=== PATIENT | female | born 1950 | race Caucasian/White ===

== ENCOUNTER 2019-06-17 20:32 | Observation (INO) | payer MEDICARE, OTHER ==
[~2019-06-17] VITALS: Ht 167.6 cm; Wt 67.7 kg
[~2019-06-17 20:32] MED LIST: ALEVE220 MG PO; DULOXETINE HCL60 MG PO; NOVOLIN N100 UNIT/1 SUB-Q; SIMVASTATIN20 MG PO
--- OUTSIDE RECORDS SUMMARY | 2019-06-17 20:34 | XMS ---
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 Care History Medical/Surgical 06/01/2019 [facility] [place] [facility] RECENT D/C TO [facility] 06/01/19 S/P FALL AND ANKLE FX REPAIR.\T\ nbsp; PT IS NON-WEIGHT BEARING AT DISCHARGE. E.D. VISIT COUNT (12 MO.) 2 [facility] TOTAL 2 NOTE: Visits indicate total known visits. ED/UCC VISIT TRACKING (12 MO.) 06/17/2019 20:33 [facility] [place] TYPE: Emergency COMPLAINT: - ANKLE PAIN 05/28/2019 08:55 [facility] [place] TYPE: Emergency COMPLAINT: - POSSIBLE ANKLE FX, FALL INPATIENT VISIT TRACKING (12 MO.) 05/28/2019 10:24 [facility] [place] TYPE: Medical Surgical COMPLAINT: - RIGHT ANKLE DISLOCATION DIAGNOSES: - Unspecified place in unspecified non-institutional (private) residence as the place of occurrence of the external cause - Adverse effect of other opioids, initial encounter - Other acute postprocedural pain - long-term (current) use of non-steroidal anti-inflammatories (NSAID) - Unspecified place in unspecified non-institutional (private) residence as the place of occurrence of the external cause - Anxiety disorder, unspecified - Type 2 diabetes mellitus with diabetic neuropathy, unspecified - Drug induced constipation - Other care home (current) drug therapy - long-term (current) use of non-steroidal anti-inflammatories (NSAID) - Type 2 diabetes mellitus with diabetic neuropathy, unspecified - Unspecified place in hospital as the place of occurrence of the external cause - Displaced bimalleolar fracture of right lower leg, initial encounter for closed fracture - Fall on same level, unspecified, initial encounter - Major depressive disorder, single episode, unspecified - long-term (current) use of insulin - Major depressive disorder, single episode, unspecified - 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
[2019-06-17] MEDS ORDERED: ULTRAM50 MG PO (20:41)
--- NOTE | 2019-06-18 01:43 | NUR ---
BROUGHT PATIENT FROM ED TO SAME DAY SURGERY CENTER ROOM 122.
--- NOTE | 2019-06-18 01:47 | NUR ---
PT ARRIVES TO [facility] VIA STRETCHER. 3PA TO SLIDE PT TO HOSPITAL BED, NON-WEIGHT BEARING. PT RATES PAIN 1-2/10 IN LEFT ANKLE. ASSESSMENT COMPLETE. STRONG PEDAL PULSES BILATERALLY, CAP REFILL <2 BLE, NUMBNESS AND TINGLING BLE. CPOX IN PLACE ORDERED, WNL ON RA. VSS. IV FLUSHED WNL, IVF INFUSING ORDERED. PT STATES SHE FEELS "A LITTLE SHAKY". CBG 189. CALL LIGHT PROVIDED TO PT. LEGS ELEVATED. BED ALARM ON FOR PT SAFETY.
--- NOTE | 2019-06-18 04:00 | NUR ---
CHECKED ON PT RESTING IN BED WITH EYES CLOSED. IVF INFUSING WNL ORDERED. BREATHING EQUAL AND UNLABORED. BED ALARM ON.
--- NOTE | 2019-06-18 06:37 | NUR ---
PT PLACED ON BED DEAL AT THIS TIME. RATES PAIN 4/10, DENIES NEED FOR PRN MEDICAITON AT THIS TIME. VSS. PEDAL PULSES PALPATED BILATERALLY LOWER EXTREMITIES. NUMBNESS AND TINGLING BLE CHRONIC. CAP REFILL <2. CALL LIGHT IN REACH.
--- NOTE | 2019-06-18 06:47 | NUR ---
STRONG PEDAL PULSES BILATERALLY. FRACTURE BOOTS IN PLACE BILATERALLY LOWER EXTREMITIES. CHRONIC NUMBNESS AND TINGLING. BED BOUND. NPO. USING CALL LIGHT APPROPRIATELY. IVF INFUSING WNL ORDERED.
--- NOTE | 2019-06-18 07:51 | NUR ---
DR ZARAGOZA CALLED AND SAID THAT DR MCKNIGHT CALLED HIM TO LOOK AT THE [facility]RA[facility] FOR PT. DR ZARAGOZA WAS HERE WITHIN FIVE MINUTES AND WROTE ORDERS. I CALLED DR MCKNIGHT TO VERIFY WHETHER DR ZARAGOZA WAS ASSUMING CARE FOR PATIENT OR JUST CONSULTING. DR MCKNIGHT SAID DR ZARAGOZA WAS TO ASSUME CARE. SO I PUT IN THE WRITTEN ORDERS THAT DR ZARAGOZA WROTE. DR ZARAGOZA CALLED AND SAID THAT THEY DO NOT HAVE THE EQUIPMENT NEEDED FOR PTS SURGERY AVAILABLE UNTIL NEXT MONDAY. HE SAID SHE COULD GO BACK TO [facility] IF NEED BE OR SHE COULD BE TRANSFERRED OUT IF THAT DOESNT WORK. I CALLED [facility] TO INFORM HER OF ALL OF THIS.
--- NOTE | 2019-06-18 09:10 | NUR ---
CALLED AND TALKED WITH DR ZARAGOZA HE STATES THAT HE CANNOT DO SURGERY ON THIS PT ANKLE UNTIL NEXT MONDAY AND THIS WILL BE NEXT Monday06/25/19 A [facility] PT. NOTIFIED OR. ALSO NOTIFIED [facility] THAT PT WILL BE RETURNING TO THEIR FACILITY TODAY. ORDER FAXED TO OR, RECEIVED FAX CONFIRMATION.
--- NOTE | 2019-06-18 09:30 | NUR ---
PATIENT SITTING UP IN BED EATING BREAKFAST. CALL LIGHT IN REACH. NO FURTHER NEEDS AT THIS TIME.
--- NOTE | 2019-06-18 09:44 | NUR ---
PT SITTING UP IN BED EATING BREAKFAST INDEPENDENTLY. ALERT AND ORIENTED TO ALL. RATING LEFT ANKLE PAIN 4/10. MEDICATED WITH 0.4MG IV DILAUDID. PT DENIES NAUSEA OR OTHER CONCERNS. RIGHT ANKLE WITH FRACTURE BOOT IN PLACE, LEFT ANKLE WITH ORTHOGLASS CAST, APPLIED THIS AM BY DR. ZARAGOZA. PT DEMONSTRATES GOOD MOVEMENT OF BILAT TOES, CHRONIC NEUROPAHTY, CAP REFILL LESS THAN 3 BILATERALLY. CALL LIGHT WITHIN REACH.
--- NOTE | 2019-06-18 09:46 | NUR ---
BILATERAL LE ELEVATED ON PILLOWS.
--- NOTE | 2019-06-18 11:15 | NUR ---
PT NON WEIGHT BEARING BILATERAL EXTREMITIES. OVERHEAD NOY USED TO TRANSFER PT TO COMMODE THEN WHEELCHAIR. PT GIVEN DC INSTRUCTIONS THEN DISCHARGED TO [facility] VIA FACILITY TRANSPORTER. PERSONAL BELONGINGS WITH PT. REPORT CALLED TO [facility], GIVEN TO MAXI.
--- NOTE | 2019-06-18 14:14 | NUR ---
PT LOADED UP IN [facility], ALIN JORDAN TO TAKE PT OUT. SHE IS SMILING AND GAVE A BLESSING AND ENCOURAGEMENT SHE LEFT. WILL FOLLOW NEEDED
--- NOTE | 2019-06-20 07:14 | CONS ---
[facility] [address] [place], [place] [address] Signed DATE OF CONSULTATION: HISTORY OF PRESENT ILLNESS: Ms. Laureano is a 69-year-old white female, who broke her right ankle several weeks ago. She apparently had another issue at her long-term care facility and was brought to the ER last night with what appears to be a fracture dislocation of the left ankle, which by history is at least several days old. She was provisionally reduced and placed in a boot and admitted to Dr. Dasilva who has requested orthopedic consultation. In talking to Ms. Laureano, amazingly, she has no pain whatsoever. PHYSICAL EXAMINATION: Examination of her left ankle reveals a lateral fracture dislocation with some abrasion and early breakdown of the skin over the medial malleolus. She has no sensation when I palpate her about the foot or ankle. Indeed, I could reduce her fairly easily without any pain reaction from her whatsoever. DIAGNOSTIC DATA: X-rays show severe osteopenia. It is difficult to identify much residual lateral malleolus and it looks like she may also have a lateral tibial plafond impaction injury. ASSESSMENT AND PLAN: I have told her I am not sure this would be repairable with typical open reduction and internal fixation. I have explained that she might need to have a tibiotalar calcaneal arthrodesis over an IM nail. After explaining the potential risks, complications, and alternatives, she was comfortable with that approach. Unfortunately, there are not many sets of this system available in the [facility] and we will not be able to do her surgery until next week. We will plan on provisionally reducing or getting her in a better padded splint and arrange for her to return to her long-term and we can gather readmitted as an observation patient next Monday. Mayuri Dean MD WFB/MODL /[id number] Copies: Electronically Signed By: MAYURI DEAN MD 06/20/19 0714 PATIENT NAME: ANGEL LAUREANO CONSULTATION DATE OF : 54 REPORT #: [id number] PHYSICIAN: MAYURI DEAN MD PCP: PRO MARY MD REPORT IS CONFIDENTIAL AND NOT TO BE RELEASED WITHOUT AUTHORIZATION [address] [address] Signed ~ Electronically Signed By: MAYURI DEAN MD 06/20/1914 PATIENT NAME: ANGEL LAUREANO CONSULTATION DATE OF : 54 REPORT #: [id number] PHYSICIAN: MAYURI DEAN MD PCP: PRO MARY MD REPORT IS CONFIDENTIAL AND NOT TO BE RELEASED WITHOUT AUTHORIZATION
== END 2019-06-18 11:20 ==
LOC: ED 20:32 → MS 20:34
PROVIDERS: ADMIT Specialist
DX: S82.842A Displaced bimalleolar fracture of left lower leg, initial encounter for closed fracture (principal); F32.9 Major depressive disorder, single episode, unspecified; F41.9 Anxiety disorder, unspecified; E11.42 Type 2 diabetes mellitus with diabetic polyneuropathy; X58.XXXA Exposure to other specified factors, initial encounter; Z79.4 Long term (current) use of insulin; Z79.891 Long term (current) use of opiate analgesic; Z79.899 Other long term (current) drug therapy
CPT/HCPCS: 27818; 28435; 36415; 71045; 73590; 73600; 73610; 80053; 82247; 82465; 83615; 84100; 84478; 84550; 85025; 93005; 93010; 96376; 99284-25; G0378; J1170; J2405; J7042

== ENCOUNTER 2019-12-05 00:42 | Emergency (ER) | payer MEDICARE, OTHER ==
[~2019-12-05] VITALS: Ht 167.6 cm; Wt 67.7 kg
[~2019-12-05 00:42] MED LIST changes: +CALCIUM 500 +1 EAC5 PO; +GLUCAGON EMERGEN1 MG INJ; +HUMALOG100 UNIT/1 SUB-Q; +LISINOPRIL-HCT1 EAC1 PO; +MIRALAX17 GM PO; +PROTONIX40 MG PO; +ULTRAM50 MG PO
--- OUTSIDE RECORDS SUMMARY | 2019-12-05 00:46 | XMS ---
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 Care History Medical/Surgical 06/01/2019 [facility] RECENT D/C TO [facility] 06/01/19 S/P FALL AND ANKLE FX REPAIR.\T\ nbsp; PT IS NON-WEIGHT BEARING AT DISCHARGE. E.D. VISIT COUNT (12 MO.) 3 [facility]. TOTAL 3 NOTE: Visits indicate total known visits. 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 - Anxiety disorder, unspecified - Major depressive disorder, single episode, unspecified - Displaced bimalleolar fracture of left lower leg, init - 1 Type 2 diabetes mellitus with diabetic polyneuropathy - Exposure to other specified factors, initial encounter - 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 supervisor (current) drug therapy - skilled nursing (current) use of opiate analgesic 05/28/2019 10:24 [facility] TYPE: Medical Surgical COMPLAINT: - RIGHT ANKLE DISLOCATION DIAGNOSES: - Unsp place in [facility]stit[facility] (private) residence as place - Adverse effect of other opioids, initial encounter - Other acute postprocedural pain - skilled nursing (current) use of non-steroidal non-inflam (NSAID) - Unsp place in [facility]stit[facility] (private) residence as place - Anxiety disorder, unspecified - 1 Type 2 diabetes mellitus with diabetic neuropathy, unsp - Drug induced constipation - 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 supervisor (current) drug therapy - skilled nursing (current) use of non-steroidal non-inflam (NSAID) - 1 Type 2 diabetes mellitus with diabetic neuropathy, unsp - Unsp place in hospital as place - Displaced bimalleolar fracture of right lower leg, init - Fall on same level, unspecified, initial encounter - Major depressive disorder, single episode, unspecified - skilled nursing (current) use of insulin - Major depressive disorder, single episode, unspecified - 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
[2019-12-05] MEDS ORDERED: LISINOPRIL20 MG PO (00:52)
[2019-12-05] MEDS ORDERED: JANUVIA50 MG PO (00:53)
[2019-12-05] MEDS ORDERED: GABAPENTIN300 MG PO (00:54)
[2019-12-05] MEDS ORDERED: TRULICITY1.5 MG/0.5 SUB-Q (00:54)
== END 2019-12-05 03:00 | disposition home or self-care (01) ==
LOC: ED 00:42
DX: K52.9 Noninfective gastroenteritis and colitis, unspecified (principal); E11.9 Type 2 diabetes mellitus without complications; F32.9 Major depressive disorder, single episode, unspecified; F41.9 Anxiety disorder, unspecified
CPT/HCPCS: 51701; 80053; 81001; 83690; 83735; 85025; 99284-25; J7030

== ENCOUNTER 2020-07-21 12:31 | Day surgery (SDC) | payer MEDICARE, OTHER ==
[~2020-07-21] VITALS: Ht 167.6 cm; Wt 67.6 kg
[~2020-07-21 12:31] MED LIST changes: +CIPRODEX OTIC7.5 ML AD; +GABAPENTIN300 MG PO; +JANUVIA50 MG PO; +LISINOPRIL20 MG PO; +NOVOLOG FL100 UNIT/1 SUB-Q; +TRULICITY1.5 MG/0.5 SUB-Q
[2020-07-21] MEDS ORDERED: LANTUS100 UNITS/ SUB-Q (13:27)
[2020-07-21] MEDS ORDERED: JARDIANCE25 MG PO (13:31)
--- NOTE | 2020-07-21 15:48 | NUR ---
07/21/20 1548 Tarah Day 1543-PATIENT ARRIVED TO PACU ON 2L NC AWAKE RR EVEN. PATIENT DENIES PAIN OR NAUSEA. ABDOMEN SOFT. IVF INFUSING. PATIENT REPOSITIONS SELF TO BACK.
--- NOTE | 2020-07-22 13:15 | OR ---
[facility] [address] [place], [place] [address] Signed DATE OF OPERATION: 07/21/2020 SURGEON: Yoni Ray MD PREOPERATIVE DIAGNOSES: 1. Constipation, known diverticulosis. 2. Family history of polyps (sister and father). POSTOPERATIVE DIAGNOSIS: Sigmoid and left-sided diverticulosis, otherwise normal. PROCEDURE: Total colonoscopy to cecum. ANESTHESIA: Intravenous sedation, fentanyl 100 mcg and Versed 5 mg. INDICATIONS: This 70-year-old white woman, is a patient of Dr. Herrera and has been referred for colonoscopy. Her last colonoscopy was approximately 12 years ago in August of 2008, at which time she was noted to have diverticulosis as well as mild proctitis. She has no family history of colon cancer, but does have family history of polyps in sister and father. She does have constipation, which is generally response to fiber supplementation. She has other medical problems including diabetes, hypertension, and so forth. She is admitted at this time to undergo colonoscopy. She understands the risks of bleeding, infection, and perforation. FINDINGS: The prep was adequate for the purpose at hand. Irrigation was required throughout. There was no sign of solid stool. Complete colonoscopy was undertaken of the cecum. The only finding of note was diverticular disease of sigmoid and left colon. There were no polyps or signs of cancer. DESCRIPTION OF PROCEDURE: The patient was brought to the endoscopy suite and placed in lateral decubitus position given intravenous sedation to the point of slurred speech and nystagmus. Digital rectal examination was normal. An Olympus video colonoscope was passed in the rectum and manipulated throughout the colon noting diverticular change of the sigmoid and left colon. Scope was ultimately Electronically Signed By: YONI RAY MD 07/22/20 1315 PATIENT NAME: ANGEL LAUREANO OPERATIVE REPORT DATE OF : 54 REPORT #: [id number] PHYSICIAN: YONI RAY MD PCP: MARÍA HERRERA MD REPORT IS CONFIDENTIAL AND NOT TO BE RELEASED WITHOUT AUTHORIZATION [facility] [address] [place], [place] [address] Signed advanced to the cecum. Irrigation was undertaken as necessary as they are. Upon withdrawal the scope and close and careful inspection showed no sign of polyps or colitis, only diverticular changes as previously noted. The rectum was normal as well other than internal hemorrhoidal changes. The scope was removed, and the patient was taken to the recovery room in good condition. CONCLUDING DIAGNOSIS: Diverticulosis, no evidence of polyps. PLAN: Recommend repeat colonoscopy in 10 years or sooner if clinically indicated. Recommend high-fiber diet or fiber supplement. She will return to the ongoing care of Dr. Herrera. MD REGINA Giles/MODL /[id number] cc: María Herrera MD Copies: ~ Electronically Signed By: YONI RAY MD 07/22/20 1315 PATIENT NAME: ANGEL LAUREANO OPERATIVE REPORT DATE OF : 54 REPORT #: [id number] PHYSICIAN: YONI RAY MD PCP: MARÍA HERRERA MD REPORT IS CONFIDENTIAL AND NOT TO BE RELEASED WITHOUT AUTHORIZATION
== END 2020-07-21 16:20 | disposition home or self-care (01) ==
LOC: OPS 12:31 → DS 13:00 → OPS 14:00
PROVIDERS: ATTEND Surgery
PROC: 0DJD8ZZ Inspection of Lower Intestinal Tract, Via Natural or Artificial Opening Endoscopic (ICD-10-PCS; principal; 2020-07-21 14:00)
DX: K64.8 Other hemorrhoids (principal); K57.30 Diverticulosis of large intestine without perforation or abscess without bleeding; I11.0 Hypertensive heart disease with heart failure; I50.9 Heart failure, unspecified; E11.9 Type 2 diabetes mellitus without complications; F32.9 Major depressive disorder, single episode, unspecified; K21.9 Gastro-esophageal reflux disease without esophagitis; Z83.71 Family history of colonic polyps; Z91.048 Other nonmedicinal substance allergy status; Z79.899 Other long term (current) drug therapy; Z79.4 Long term (current) use of insulin
CPT/HCPCS: 99153; G0500; J2250; J3010; J7121

== ENCOUNTER 2021-02-07 18:12 | Emergency (ER) | payer MEDICARE, OTHER ==
[~2021-02-07] VITALS: Ht 167.6 cm; Wt 86.3 kg
[~2021-02-07 18:12] MED LIST changes: +JARDIANCE25 MG PO; +LANTUS100 UNITS/ SUB-Q
== END 2021-02-07 22:07 | disposition home or self-care (01) ==
LOC: ED 18:12
DX: K52.9 Noninfective gastroenteritis and colitis, unspecified (principal); E11.9 Type 2 diabetes mellitus without complications; Z79.899 Other long term (current) drug therapy; Z79.4 Long term (current) use of insulin
CPT/HCPCS: 80053; 81001; 83735; 85025; 96374; 99284-25; J2405; J7030

== ENCOUNTER 2021-10-25 14:48 | Emergency (ER) | payer MEDICARE, OTHER ==
[~2021-10-25] VITALS: Ht 167.6 cm; Wt 86.3 kg
--- NOTE | 2021-10-27 16:35 | EKG ---
[facility] [address] [place] [address] Signed Sinus tachycardia Left axis deviation Minimal voltage criteria for LVH, may be normal variant ( Satish product ) Abnormal ECG When compared with ECG of 28-MAY-2019 10:13, No significant change was found Confirmed by MICHELLE ALMONTE MD ([id number]) on 10/27/2021 4:34:53 PM Electronically Signed By: MICHELLE ALMONTE MD 10/27/21 1635 PATIENT NAME: ANGEL LAUREANO Electrocardiogram DATE OF : 54 PHYSICIAN: MICHELLE ALMONTE MD REPORT #: [id number] REPORT IS CONFIDENTIAL AND NOT TO BE RELEASED WITHOUT AUTHORIZATION
== END 2021-10-25 18:13 | disposition short-term general hospital (02) ==
LOC: ED 14:48
DX: I61.1 Nontraumatic intracerebral hemorrhage in hemisphere, cortical (principal); N28.9 Disorder of kidney and ureter, unspecified; E11.40 Type 2 diabetes mellitus with diabetic neuropathy, unspecified; Z79.4 Long term (current) use of insulin; Z79.899 Other long term (current) drug therapy
CPT/HCPCS: 70450; 70496; 70498; 71045; 80053; 85025; 85610; 85730; 93005; 93010; 96365; 96375; 99285-25; C9803; J1953; J7060; Q9967; U0003

== ENCOUNTER 2022-01-20 19:15 | Observation (INO) | payer MEDICARE, OTHER ==
[~2022-01-20] VITALS: Ht 167.6 cm; Wt 92.5 kg
--- OUTSIDE RECORDS SUMMARY | 2022-01-20 19:18 | XMS ---
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 No recent Security Events currently on file CRITERIA MET - PDMP CARE PROVIDERS SALAZAR TRINH Physical Medicine \T\ Rehabilitation Current PHONE: [phone] DANIELE HEART [facility] Current PHONE: Unknown Manda Mahoney Chromosomal Disorders Counselor/Chemical Radiation Technician 11/23/2021-Current PHONE: [phone] ABIGAIL GONZALEZ Physician Supervisor [employer] Current PHONE: Unknown PRO MARY [facility] 06/18/2019-Current PHONE: [phone] PRANAV ORDAZ Internal Medicine: Pulmonary Disease 12/05/2019-Current PHONE: Unknown [facility] Current PHONE: Unknown Shi has no Care Guidelines for this patient. Care History Medical/Surgical 12/05/2019 [facility] - - Patient is currently established with [facility]. If patient is seen in the ED during business hours. Please contact CHWs at [facility]. - Care Recommendation: If this patient has had 5 or more Emergency Department visits in the last 12 months.\T\nbsp; Patient will require education on the scope and purpose of the ED as an acute care provider not a Primary Care Provider and should not be utilized for chronic conditions.\T\nbsp; These are guidelines and the provider should exercise clinical judgment when providing care. 06/01/2019 [facility] RECENT D/C TO [facility] 06/01/19 S/P FALL AND ANKLE FX REPAIR.\T\ nbsp; PT IS NON-WEIGHT BEARING AT DISCHARGE. E.D. VISIT COUNT (12 MO.) [address] [facility] TOTAL 3 NOTE: Visits indicate total known visits. ED/UCC VISIT TRACKING (12 MO.) 01/20/2022 19:15 [facility] TYPE: Emergency COMPLAINT: - STROKE SYMPTOMS 10/25/2021 14:49 [facility] TYPE: Emergency COMPLAINT: - WEAKNESS DIAGNOSES: - Weakness - Type 2 diabetes mellitus with diabetic neuropathy, unspecified - Disorder of kidney and ureter, unspecified - Type 2 diabetes mellitus without complications - Other senior living (current) drug therapy - Nontraumatic intracerebral hemorrhage, unspecified - MCC (current) use of insulin - Nontraumatic intracerebral hemorrhage in hemisphere, cortical 02/07/2021 18:12 [facility] TYPE: Emergency COMPLAINT: - VOMITING,DIARRHEA DIAGNOSES: - Nausea with vomiting, unspecified - Other senior living (current) drug therapy - Noninfective gastroenteritis and colitis, unspecified - Type 2 diabetes mellitus without complications - [facility] (current) use of insulin INPATIENT VISIT TRACKING (12 MO.) 10/25/2021 20:48 [facility] 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
[2022-01-20] MEDS ORDERED: KEPPRA750 MG PO (19:36)
--- NOTE | 2022-01-20 22:15 | NUR ---
pt arrived from ed via stretcher, oriented to room and hosp routines. On room air, alert to self, place and situation. cooperative, pleasant, alert, c/o neuropathy nic [place], pt obese, states she does not move from the bed. recently came home from [facility], is supposed to get HH/PT but they have not been to her house yet. denies CP or SOB, tele#[address]
--- NOTE | 2022-01-20 23:43 | NUR ---
[facility] CALLED THIS FLOOR QUESTIONING KEPPRA IR DOSAGE. DR CONNER NOTIFIED AND NEW ORDERS TO GIVE 500MG KEPPRA IR TONIGHT, AND FAMILY CAN BRING HER KEPPRA FROM HOME IN AM.
--- NOTE | 2022-01-21 00:29 | NUR ---
Awakes easily, on room air, HOB elevated, meds given. Pt was awake, unable to swallow meds or being able to drink from straw, word salad at begining. meds given with puding, delayed reactio to swallowing noted. Had trouble coordinating swallowing motion from straw and regular water. thickened added to water and it was much more easier for pt to suck out of straw. very slow motion while taking meds, required several cues. then was more better at swallowing w/o problems. unknown if it was because pt got woken up. but pt had eyes fully opened and looking at staff when meds given. and helped hold water jug. speech better now. ontinue sto observe, PT/OT/ST eval was ordered by . Pt did passes swallow test at bedside. Pt has Left sided weakness from previous hemorrhagic stroke., stated she has not walked in weeks. has a caregiver at home
--- NOTE | 2022-01-21 04:18 | NUR ---
TURNED AND REPOSITIOANED IN BED, CLEAR SPEECH AT THIS TIME. L SIDED DEFICIT STILL PRESENT, DENIES SOB OR CP. ON ROOM AIR, CALL LIGHT AT HANDS REACH
--- NOTE | 2022-01-21 06:23 | NUR ---
pt has slept all this shift, aware of self and generalized events. on room air, L sided deficits, stiffness of extremities generalized. moves R hand more than Left. Was incontinent of urine, skin care, clean attends in place. Pt did on admit was able to grab water cup with R hand well, and was able to suck from straw w/o problems, later on when giving meds, pt had word salad, unable to suck fluids from straw, bedside evaluation done, passses but still was unable to suck from straw at times, thickened fluids were givien and pt was able to drink from straw w/o problems. no cough afterwards, meds were given with gerald and she was able to swallow some meds w/o problems and some with a delayed swallowing reaction. are of self only at that time. no change on pt able to hold water cup at that time. helped with repositioning. Pleasant. slow response to instructions. Tele#[address], SR. denies CP or SOB. L side deficit from previous stroke, and LE stiffness
--- NOTE | 2022-01-21 06:44 | EKG ---
[facility] [address] [place] [address] Signed Sinus rhythm with 1st degree AV block Left axis deviation Incomplete left bundle branch block Moderate voltage criteria for LVH, may be normal variant ( R in aVL , Satish product ) Abnormal ECG When compared with ECG of 25-OCT-2021 15:49, No significant change was found Confirmed by ANGEL COVARRUBIAS MD ([id number]) on 01/21/2022 6:43:58 AM Electronically Signed By: ANGEL COVARRUBIAS MD 01/21/22 0644 PATIENT NAME: ANGEL LAUREANO Electrocardiogram DATE OF : 54 PHYSICIAN: ANGEL COVARRUBIAS MD REPORT #: [id number] REPORT IS CONFIDENTIAL AND NOT TO BE RELEASED WITHOUT AUTHORIZATION
--- NOTE | 2022-01-21 07:04 | NUR ---
REPORT RECEIVED FROM [facility]. PT RESTING IN BED WITH EYES CLOSED. RESPIRATIONS EVEN AND UNLABORED. TELEMETRY [place]ONT[place]ING SHOWS NORMAL SINUS RYTHEM WITH HEART RATE IN THE 80'S. BED RAILS UP. CALL LIGHT WITHIN REACH. PT ALLOWED TO REST.
--- NOTE | 2022-01-21 07:32 | NUR ---
DR COVARRUBIAS CALLED AND UPDATED REGARDING HER NOTE INDICATING THAT PT SHOULD RECEIVE ASPIRIN, ORDERS GIVEN TO START PT ON LOW DOSE ASPIRIN DAILY. ORDERS ENTERED. DR CONNER UPDATED ON PTS SWALLOWING ISSUES, NO NEW ORDERS AT THIS TIME.
[2022-01-21] MEDS ORDERED: BASAGLAR K100 UNIT/1 SUB-Q (08:30)
[2022-01-21] MEDS ORDERED: TRULICITY3 MG/0.5 M SUB-Q (08:33)
[2022-01-21] MEDS ORDERED: ALENDRONATE SOD70 MG PO (08:33)
--- NOTE | 2022-01-21 08:45 | NUR ---
MORNING ASSESSMENT AND MEDICATION DUE. PT RESTING IN BED ON LEFT SIDE. PT AWAKE AND ALERT. PT ORIENTED TO ALL BUT YEAR AND EXACT TOWN "I'M SOMEWHERE IN [place]." PT DENIES PAIN AND NAUSEA. IV ASSESSED, WNL. NO S/S OF PHELBITIS NOTED. PT ABLE TO MOVE SELF TO EDGE OF BED AND SIT UP IN BED INDEPENDANTLY. PT UP TO CHAIR WITH ON PERSON ASSIST. PT HAS SHUFFELING GATE AND IS UNSTEADY ON FEET BUT ABLE TO TRANSFER WITH MODERATE ASSISTANCE. NIH SCORE OF 3 FOR MINOR RIGHT SIDED FACIAL DROOP AND MINIMAL RIGHT SIDED DRIFT. PTS SPEACH CLEAR. PT ABLE TO SWALLOW THICKENED LIQUID WITH NO ISSUES. TAKES MEDICATIONS WITH NO THROAT CLEARING OR COUGHING NOTED. PUPILS WNL, LUNG SOUNDS CLEAR. HEART TONES REGULAR. NORMAL SINUS RYTHEM CONTINUES ON TELEMETRY MONITORING. BOWEL TONES REGULAR. PT REMAINS UP TO CHAIR. CALL LIGHT WITHIN REACH. PT ASSISTED WITH TURNING ON TV. NO ADDITIONAL REQUESTS OR COMPLAINTS. CALL LIGHT WITHIN REACH.
--- NOTE | 2022-01-21 09:30 | NUR ---
THIS RN TO ROOM TO CHECK ON PT. PT RESTING IN CHAIR, EATING BRAKFAST. PT REQUESTS ADDITIONAL COFFEE, PROVIDED. PT DENIES PAIN AND NASUEA. NO ADDITIONAL REQUESTS OR COMPLAINTS. CALL LIGHT WITHIN REACH.
--- NOTE | 2022-01-21 10:20 | NUR ---
THIS RN TO ROOM TO CHECK ON PT. PT REMAINS UP TO CHAIR. VISITING WITH FAMILY. PT DENIES PAIN AND NAUSEA. NO REQUESTS OR COMPLAINTS AT THIS TIME. CALL LIGHT WITHIN REACH. FAMILY AT BEDSIDE.
--- NOTE | 2022-01-21 10:54 | NUR ---
MED REC COMPLETE
--- NOTE | 2022-01-21 11:50 | NUR ---
NOON BLOOD SUGAR DUE. PT REMAINS UP TO CHAIR. VISITING WITH FAMILY ON THE PHONE. PT ABLE TO RECALL DETAILS SUCH HER BLOOD SUGAR LEVEL, PLAN OF CARE AND CONVERSATION ELEMENTS. MEDICATIONS GIVEN (SEE MAR). PT CONTINUES VISITING WITH FAMILY. PT DENIES PAIN AND NAUSEA. NO ADDITIONAL REQUESTS OR COMPLAINTS. CALL LIGHT WITHIN REACH.
--- NOTE | 2022-01-21 12:56 | NUR ---
THIS RN TO ROOM TO CHECK ON PT. PT UP TO CHAIR, FINISHED WITH LUNCH. PT VISITING WITH BOOK AUTHOR AND FAMILY. PT DENIES PAIN AND NAUSEA. NO ADDITIONAL REQEUSTS OR COMPLAITES. PLAN MADE FOR SHOWER LATER TODAY. CALL LIGHT WITHIN REACH.
--- NOTE | 2022-01-21 13:52 | NUR ---
PATIENT SITTING UP IN CHAIR, VITALS AND I&OS CHARTED. FAMILY MEMEBER IN ROOM. FRESH ICE WATER PROVIDED.
--- NOTE | 2022-01-21 14:30 | NUR ---
AFTERNOON ASSESSMENT DUE. PT UP TO CHAIR, TALKING WITH CAREGIVER. PT INTERACTING APPROPRIATLY, NO SLURRED SPEECH NOTED. PT DENIES PAIN AND NAUSEA. HEART TONES REGULAR. TELEMETRY MONTIROING CONTINUES TO SHOW NORMAL SINUS RYTHEM WITH HEART RATE IN THE 80'S. PT ALERT AND ORIENTED TO ALL BUT YEAR. NIH SCORE OF 2 FOR LEFT SIDED MINOR WEAKNESS. MINMAL DRIFT NOTED. NO FACIAL ASYMETRY NOTED. 1 PERSON ASSIST UP TO SHOWER CHAIR. PT TRANSFERSE WELL WITH WALKER, SOME MINOR DIFFICULTY STANDING UP FROM CHAIR. PT UP FOR SHOWER. PT ASSISTS WITH SHOWER AND SHAMPOO. FRESH GOWN, SOCKS AND DEPENDS APPLIED. 1 PERSON ASSIST BACK TO CHAIR. LUNG SOUNDS CLEAR. PT DENIES ADDITIONAL REQUESTS OR COMPLAINTS. CALL LIGHT WITHIN REACH. CAREGIVER AT BEDSIDE WITH PT.
--- NOTE | 2022-01-21 15:16 | NUR ---
THIS RN TO ROOM WITH DR. WEST FOR ROUNDS. PT ANSWERS QUESTIONS APPROPRIATLY. PT VERBALIZES UNDERSTANDING OF PLAN OF CARE. NO ADDITIONAL NEEDS AT THIS TIME. CALL LIGHT WITHIN REACH. CAREGIVER REMAINS AT BEDSIDE.
--- NOTE | 2022-01-21 15:50 | NUR ---
Spoke with pt and her cg Jennifer. Manda Mahoney from [facility] arrives during our conversations and pt gives permission for me to speak with her. and gives Manda permission to update me. Manda is pts CM from [facility]. She and Jennifer are able to answer questions pt has difficulty remembering. Pt lives in an apartment and has hrs for cg through the state and also pays for hours out of pocket. Jennifer does the shopping, cleaning, and takes pt in a cab for outings. Pt does some cooking. Pt and cg feel TIA symptoms have resolved and pt is 85% at baseline. Pt wants to return to her apartment when she is medically cleared. Pt recently received an inheritance, per [employer] she has limited services through them until she has spent her money to $2000. Pt denies needs, but would like HH which she felt has been ordered from the SNF discharged from through [facility]. I called and they do not have PT and will not for another month. I called and spoke with GS and they have also lost staff, but would be able to admit this pt possible 01/29 if they can receive the chart today. Spoke with Dr. Mon and faxed face sheet, F2F, Referral with extention through 02/04/22, H&P, progress note and OT to [facility]. Will fax ST and PT note when completed.
--- NOTE | 2022-01-21 16:12 | NUR ---
Faxed PT/ST note to [facility] at in [place].
--- NOTE | 2022-01-21 16:15 | NUR ---
THIS RN TO ROOM TO CHECK ON PT. PT REMAINS UP CHAIR, PT WATCHING TV. PT DENEIS PAIN AND NAUSEA. NO ADDITIONAL REQUESTS OR COMPLAINTS. CALL LIGHT WITHIN REACH. CAREGIVER AT BEDSIDE.
--- NOTE | 2022-01-21 16:25 | NUR ---
PT HERE FOR OBSERVATION RELATED TO POSSIBLE TIA. PT UP TO CHAIR WITH 1 PERSON ASSIST AND FRONT WHEEL WALKER. PT ALSO UP FOR SHOWER THIS SHIFT. PT TOELRATING 60G CARB DIET, BLOOD SUGAR CHECKS WITH MEALS AND HS. SLIDING SCALE INSLUIN GIVEN. SUGAR FREE SNACKS PROVIDED. PT INCONSISTANTLY ORIENTED. NIH SCORES IMPROVING, LEFT SIDED WEAKNESS CONTINUES. SPEACH CLEAR THIS SHIFT. PT CONFUSED BUT PLESENT AND INTERACTING WITH CARES. CAREGIVER AT BEDSIDE THIS SHIFT. PT/OT/ST THIS SHIFT. PT PASSED SWALLOW EVALUATION WITH THIN LIQUIDS. PT VOIDING BORDERLINE. IV FLUIDS CONTINUE. PT DOES NOT USE CALL LIGHT, BED ALARM IF PT IS ALONE.
--- NOTE | 2022-01-21 16:54 | NUR ---
THIS RN TO ROOM TO CHECK ON PT. 2 PERSON ASSIST WITH FWW UP TO RESTROOM TO VOID. PT ASSISTED WITH JOHNNY CARE. FRESH DEPENDS IN PLACE. MEDICATIONS GIVEN. PT EATING DINNER. NO ADDITONAL REQUESTS OR COMPLAINTS. CAREGIVER AT BEDSIDE. CALL LIGHT WITHIN REACH.
--- NOTE | 2022-01-21 18:21 | NUR ---
THIS RN TO ROOM TO CHECK ON PT. PT REMAINS UP TO CHAIR. PT IS TELLING STORIES FROM HER LIFE AND RECALLING DETAILS OF THE DAY. PT DENIES PAIN AND NAUSEA. DRESSING TO RIGHT HAND IV SITE CHANGED PER PROTOCOL CURRENT DRESSING WAS LOOSE. PT DENIES ADDITIONAL REQUESTS OR COMPLAINTS. CALL LIGHT WITHIN REACH. CAREGIVER REMAINS AT BEDSIDE.
--- NOTE | 2022-01-21 18:45 | NUR ---
PT CALL LIGHT ON. PT REQUESTS ASSISTANCE UP TO RESTROOM AND BACK TO BED. 1 PERSON ASSIT WITH FRONT WHEEL WALKER UP TO RESTROOM. PT VOIDS 100ML YELLOW URINE. PT ASSISTED WITH JOHNNY CARE. 1 PERSON ASSIST WITH FWW BACK TO BED. PT REPORTS SHE IS "RESTING COMFORTABLY." PT DENIES PAIN AND NAUSE. CALL LIGHT WITHIN REACH. BED RAILS UP. BED ALARMON.
--- NOTE | 2022-01-21 19:48 | NUR ---
MUCH MORE ALERT AND ORIENTED X4, PLEASANT, NO VERBAL APHASIA NOTED. MOVING ALL EXTREMITIES, L SIDED WEAKER BUT MUCH BETTER THAN YESTERDAY. ON ROOM AIR, TELE#[address] sr, DENIES CO OR SOB. WATCHINT TV. CALL LIGHT AT HANDS REACH
--- NOTE | 2022-01-21 20:17 | NUR ---
ON ROOM AIR, COOP WITH ASSESSMENT, LUNGS DIM AT BASES, SL LAC PATENT, IVF INFUSING rh. INC OF SMALL AMOUNT OF URINE, CHANGED, PT UP TO BR, 1PA, MUCH IMPROVED GAIT, VOIDED SMALL AMOUNT. TOLERATING LIQUIDS WELL, NO EMESIS. HELPED WITH REPOSITONING
--- NOTE | 2022-01-21 20:40 | NUR ---
IN TO ASSIST PT TO THE TOILET, 1PA FWW, PT VOIDED AND BACK TO BED, ABLE TO ASSIST SELF WITH BOOST, BED ALARM IS SET
--- NOTE | 2022-01-21 23:45 | NUR ---
PT REASTING, EYES CLOSED, NO DISTRESS, IVF INFUSING W/O PROBLEMS, TURNED AND REPOSITIONED, BED ALARM ON
--- NOTE | 2022-01-22 01:42 | NUR ---
ON ROOM AIR, EYES CLOSED, NO DISTRESS, IVF INFUSING, BED ALARMN
--- NOTE | 2022-01-22 03:36 | NUR ---
Awakes easily, no distress, on room air, tele#[address] turns and repositions self in bed, clear speech. bed alarm on. IVF infusing
--- NOTE | 2022-01-22 04:15 | NUR ---
IN WITH RN TO GET VITALS, PT INCONT OF URINE, WHOLE BED CHANGE AND NEW ATTENDS IN PLACE, FRESH WATER GIVEN, BED ALARM RESET
--- NOTE | 2022-01-22 05:07 | NUR ---
Pt has slept this shift. On room air, lungs clear, no cough no distress. IVF infusing w/o problems. Up to BR w 1pa/fww, slight unsteadiness but tolerated well, helped with repositioning. Was incontinent of very large amont of urine skin care, clean gown and linen. tolerating liquids well, speach and body movement much better than yesterday. turns and repositions self in bed, tele#[address] SR[address] Bed alarm on for fall precautions
--- NOTE | 2022-01-22 09:50 | NUR ---
Patient assisted to the chair for breakfast, 1PA using FWW. Patient denies pain this morning. Patient able to eat her breakfast independently. No current needs. Ecnouraged patient to call if she has any needs. Personal supplies and call light within reach.
[2022-01-22] MEDS ORDERED: ASPIRIN81 MG PO (10:03)
--- NOTE | 2022-01-22 10:08 | NUR ---
PATIENT SITTING UP IN CHAIR AT THIS TIME. VITALS AND I&O'S CHARTED. CALL LIGHT IN REACH. NO FURTHER NEEDS AT THIS TIME.
== END 2022-01-22 11:11 | disposition home or self-care (01) ==
LOC: ED 19:15 → MS 19:16
PROVIDERS: ADMIT Internal Medicine; ATTEND Internal Medicine
DX: G45.9 Transient cerebral ischemic attack, unspecified (principal); E11.40 Type 2 diabetes mellitus with diabetic neuropathy, unspecified; F41.8 Other specified anxiety disorders; I65.22 Occlusion and stenosis of left carotid artery; M50.31 Other cervical disc degeneration, high cervical region; Z79.4 Long term (current) use of insulin; Z20.822 Contact with and (suspected) exposure to COVID-19
CPT/HCPCS: 36415; 70450; 70496; 70498; 71045; 80048; 80053; 81001; 85025; 85610; 85730; 93005; 93010; A9270; C9803; J1815; J7030; Q3014; Q9967; U0003

== ENCOUNTER 2022-01-22 19:56 | Inpatient (IN) | payer MEDICARE, OTHER ==
[~2022-01-22] VITALS: Ht 167.6 cm; Wt 91.8 kg
[~2022-01-22 19:56] MED LIST changes: +ALENDRONATE SOD70 MG PO; +ASPIRIN81 MG PO; +BASAGLAR K100 UNIT/1 SUB-Q; +KEPPRA750 MG PO; +TRULICITY3 MG/0.5 M SUB-Q
--- OUTSIDE RECORDS SUMMARY | 2022-01-22 19:58 | XMS ---
PreManage Notification: ANGEL LAUREANO Security Call Center Support Consultant Events No recent Security Events currently on file CRITERIA MET - PDM - [facility] - 2 Visits in 30 Days CARE PROVIDERS SALAZAR TRINH Physical Medicine \T\ Rehabilitation Current PHONE: [phone] DANIELE HEART [facility] Current PHONE: Unknown Manda Mahoney Supervisor Type Photography/Log Handler 11/23/2021-Current PHONE: [phone] ABIGAIL GONZALEZ Physician Lens Fabricating Machine Tender Current PHONE: Unknown PRO MARY Family Medicine 06/18/2019-Current PHONE: [phone] PRANAV ORDAZ Internal Medicine: Pulmonary Disease 12/05/2019-Current PHONE: Unknown [facility] Current PHONE: Unknown Shi has no Care Guidelines for this patient. Care History Medical/Surgical 12/05/2019 [facility] - - Patient is currently established with [facility]. If patient is seen in the ED during business hours. Please contact CHWs at [facility]. - Care Recommendation: If this patient [...] exercise clinical judgment when providing care. 06/01/2019 [facility] RECENT D/C TO [facility] 06/01/19 S/P FALL AND ANKLE FX REPAIR.\T\ nbsp; PT IS NON-WEIGHT BEARING AT DISCHARGE. E.D. VISIT COUNT (12 MO.) 4 [facility] TOTAL 4 NOTE: Visits indicate total known visits. ED/UCC VISIT TRACKING (12 MO.) [facility] COMPLAINT: - WEAKNESS 01/20/2022 19:15 [facility] [place] TYPE: Emergency COMPLAINT: - STROKE SYMPTOMS 10/25/2021 14:49 [facility] [place] TYPE: Emergency COMPLAINT: - WEAKNESS DIAGNOSES: - Weakness - Type 2 diabetes mellitus with diabetic neuropathy, unspecified - Disorder of kidney and ureter, unspecified - Type 2 diabetes mellitus without complications - Other long-term (current) drug therapy - Nontraumatic intracerebral hemorrhage, unspecified - FDC (current) use of insulin - Nontraumatic intracerebral hemorrhage in hemisphere, cortical 02/07/2021 18:12 [facility] [place] TYPE: Emergency COMPLAINT: - VOMITING,DIARRHEA DIAGNOSES: - Nausea with vomiting, unspecified - Other long-term (current) drug therapy - Noninfective gastroenteritis and colitis, unspecified - Type 2 diabetes mellitus without complications - FDC (current) use of insulin INPATIENT VISIT TRACKING (12 MO.) 01/20/2022 19:16 [facility] [place] TYPE: Observation COMPLAINT: - TIA 10/25/2021 20:48 [facility] TYPE: Neuro Surgery DIAGNOSES: - Depression, unspecified - Type 2 diabetes mellitus with diabetic chronic kidney disease - Other specified counseling - Irritable bowel syndrome without diarrhea - Nontraumatic intracerebral hemorrhage in hemisphere, cortical - Other specified postprocedural states - termite exterminator helper (current) use of insulin - Acute kidney failure, unspecified - Diffuse cystic mastopathy of right breast - Retention of urine, unspecified - Traumatic hemorrhage of cerebrum, unspecified, without loss of consciousness, initial encounter - Unspecified convulsions - Diabetes mellitus due to underlying condition with hyperosmolarity without nonketotic hyperglycemic-hyperosmolar coma ([facility]) - Cerebral edema - Essential (primary) hypertension [email or web address]
--- NOTE | 2022-01-22 23:07 | NUR ---
2250 - PT ADMITTED TO ROOM 112 FROM ED, VIA STRETCHER. 230 - ALERT AND ORIENTED TO SELF, AND SITUATION. COOP WITH ASSESSMENTS, ON ROOM AIR, LUNGS DIM AT BASES, SL LAC PATENT. PT PLACED ON AATENDS, INCOTNINENT OF URINE AT TIMES. STIFF LE BUT WAS ABLE TO HELP WITH REPOSITIONING IN BED. C/O MILD KNEE PAIN, DENIES NEED FOR PAIN MEDS. TOLERATING LIQUIDS WELL, NO EMESIS. ON ASPIRATION PRECATUIONS. ORIENTED TO ROOM. PLEASANT, QUESTIONS ANSWERED TO HER SATISFACTION. BED ALARM ON FOR FALL PRECAUTIONS
--- NOTE | 2022-01-23 01:59 | NUR ---
RESTING, EYES CLOSED, NO DISTRESS, ON ROOM AIR, CALL LIGHT AT HANDS REACH
--- NOTE | 2022-01-23 04:23 | NUR ---
RESTING, EYES CLOSED, ON ROOM AIR. NO DISTRESS. REPOSITIONS AND TURNS SELF IN BED. BED ALARM ON.
--- NOTE | 2022-01-23 06:05 | NUR ---
turned and repositioned, incontinent of urine, skin care, clean attends, repositioned. lab in room, cooperative
--- NOTE | 2022-01-23 06:06 | NUR ---
Pt has slept, alert and oriented, On room air, lungs clear, no cough, answers appropriately, clear speech, forgetful at times, helps with turning and repositioning. Incontinent of urine. Tolerating liquids well, no emesis. C/o light discomofrt at knees bilat from ground level fall at home. no bruising scabbed over old areas arms and legs healing. bed alarm on fall precautions
--- NOTE | 2022-01-23 06:58 | NUR ---
Pt upset, stating "I need to talk to those people from the animal welfare, I was suppossed to attend an animal welfare conference , they were here earlier, they left and did not come back". "I think you think im laying and delusional as I have a brain injurY?" "I want to talk to my sister, because you do not believe me and thnk you can take advantage of me because I had a brain injury? started getting more upset. Judit charge nurse asked to come in room.
--- NOTE | 2022-01-23 07:26 | NUR ---
Dr Mon notifed of above comments by pt. no new orders
--- NOTE | 2022-01-23 08:14 | NUR ---
PATIENT UP TO CHAIR FROM CHAIR, 2PA PIVOT. WARM BLANKET GIVEN. RN IN ROOM AT THIS TIME.
--- NOTE | 2022-01-23 08:30 | NUR ---
PT SITTING UP IN CHAIR WAITING FOR BREAKFAST, PT IS ALERT, ORIENTED TO BASELINE PER MD. CBG INDICATED NO NEED FOR INSULIN ADMINISTRATION. PT REQUESTING TO SPEAK WITH SISTER. WHEN CONVERSING WITH PT, SHE OFTEN STRUGGLES TO FIND THE WORDS TO FINISH A SENTENCE. WILL CONTINUE TO MONITOR FOR ANY ACUTE CHANGES.
--- NOTE | 2022-01-23 10:10 | NUR ---
PT WORKED WITH PT AND HAD AN EPISODE OF WEAKNESS AND CONFUSION. BLOOD PRESSURE TAKEN, PT FOUND TO BE HYPOTENSIVE OF 86/38 (48). AFTER APPROX 8 MINUTES, PT'S BP WHILE STILL IN THE CHAIR WAS 112/47 (65). PT REPORTED THE FEELING OF WEAKNESS WAS SLOWLY DISIPATING. PT CONTINUES TO BE CONFUSED. WHEN ASKED WHERE SHE IS PT STATES "[place]". WHEN ASKED THE DATE, PT RESPONDS "JUL 12", AND WHEN ASKED THE CITY SHE IS IN, PT ALSO RESPONDS WITH "JUL 12". NOTIFIED OF ACUTE CHANGES. NO NEW ORDERS, REPORTS THESE NEURO CHANGES ARE ACUTE ON CHRONIC DUE TO BRAIN INJURY, SOME UNDERLYING DEMENTIA, AND POSSIBLE RECENT TIA. NO ANTITHROMBOLITIC INDICATED DUE TO BRAIN BLEED. WILL CONTINUE TO MONITOR.
--- NOTE | 2022-01-23 10:40 | NUR ---
PATIENT UP TO BSC AND BACK TO CHAIR, 2PA PIVOT TRANSFER. BLOOD PRESSURE TAKED RIGHT AFTER PATIENT GOT BACK TO CHAIR UPON RN REQUEST, RN NOTIFIED OF BLOOD PRESSURE. I&O'S CHARTED. CALL LIGHT IN REACH. NO FURTHER NEEDS AT THIS TIME.
--- NOTE | 2022-01-23 10:50 | NUR ---
ATTEMPTING TO COMPLETE NIH SCALE WITH PT, WHO IS CURRENTLY ON THE PHONE WITH HER SISTER, MARISSA.
--- NOTE | 2022-01-23 11:25 | NUR ---
CALL FROM PT'S SISTER MARISSA CRUZ WHO REPORTS SHE HAS SOME CONCERNS OVER PT'S HYPOTENSION THIS AM. DISCUSSED AT LENGTH WITH MARISSA, INCLUDING REASSURANCE THAT PT WILL CONTINUE TO HAVE PT/OT, DESPITE ONE EPISODE OF HYPOTENSION. MARISSA DID REPORT THAT INTERMITTENT BOUTS OF HYPOTENSION IS IN THE PT'S HISTORY, WITH NO KNOWN ETIOLOGY.
--- NOTE | 2022-01-23 12:00 | NUR ---
IN TO PT'S ROOM FOR REASSESSMENT OF NEURO STATUS, AND TO COMPLETE NIH SCALE. PT HAD VERY FEW NOTABLE DEFICITS, AND WAS ABLE TO ANSWER ALL QUESTIONS CORRECTLY. IT WAS NOTED THAT PT SOMETIMES IS SLOW TO RESPOND TO DIRECTION, BUT WITH REINFORCEMENT, IS ABLE TO FOLLOW THROUGH WITH TASKING/QUESTIONING. MD DEGROOT.
--- NOTE | 2022-01-23 14:11 | NUR ---
PT SITTING UP IN CHAIR, DOZING AFTER LUNCH. STATES SHE WAS ONLY ABLE TO EAT ABOUT HALF HER LUNCH. PT WOULD LIKE TO STAY IN THE CHAIR FOR A WHILE LONGER, AND STATED SOON SHE WILL NEED ASSISTANCE GETTING ON THE COMMODE. PT GIVEN CALL LIGHT AND REMINDED WHICH BUTTONS TO PUSH FOR HELP. PT HAS NO OTHER REQUESTS AT THIS TIME.
--- NOTE | 2022-01-23 14:33 | NUR ---
PATIENT TO BSC AND BACK TO CHAIR, 2PA PIVOT. VITALS AND I&O'S CHARTED. BLOOD PRESSURE BEFORE MOVING TO BS WAS 143/70, BLOOD PRESSURE AFTER GOING TO BS AND BACK TO CHAIR WAS 117/58. PATIENT ALSO HAD A TEMP OF 100.2, RN NOTIFED. CALL LIGHT IN REACH. NO FURTHER NEEDS AT THIS TIME.
--- NOTE | 2022-01-23 14:35 | NUR ---
PT UP TO COMMODE HEAVY TWO PERSON ASSIST BACK INTO CHAIR. PT HAD SMALL BM, REPORTS SHE IS FEELING "BETTER". PT'S BP DOWN AGAIN WITH AMBULATION, PT ASYMPTOMATIC. PT WANTS TO REST IN HER CHAIR FOR A WHILE. CALL LIGHT WITHIN REACH.
--- NOTE | 2022-01-23 15:12 | NUR ---
IN TO CHECK ON PT WHO IS ALERT, ORIENTED, AND VERY PLEASANT. PT VERY COGNITIVELY CLEAR AT THIS TIME, BEFAST NOTED TO BE NEGATIVE. PT RECALLS THAT SHE HAS A HX OF INTERMITTENT HYPOTENSION FOR THE LAST SEVERAL YEARS. CALL LIGHT WITHIN REACH. ICE WATER AND LEMON SORBET GIVEN. PT HAS NO OTHER REQUESTS AT THIS TIME.
--- NOTE | 2022-01-23 16:05 | NUR ---
PT MANAGER URGENT CARE LIGHT REQUESTING HELP BACK IN TO BED. PT IS TWO PERSON ASSIST TO TRANSFER, STATES HER KNEE IS STILL SORE FROM HER FALL YESTERDAY, BUT IMPROVING. PT BACK IN BED AND ABLE TO REPOSTION HERSELF WITHOUT ASSISTANCE. PT GIVEN WARM BLANKET, REMOTE CONTROL, AND GUIDEPOST MAGAZINE TO READ. PT HAS NO OTHER REQUESTS AT THIS TIME.
--- NOTE | 2022-01-23 17:33 | NUR ---
IN TO MEDICATE PT, WHO IS ASLEEP. WAKES EASY WITH VERBAL STIMULI. PT REQUESTING TO EAT DINNER SOON. EXPLAINED IT SHOULD BE HERE SHORTLY. PT TOOK MED PLUS INSULIN. PT HAS NO OTHER REQUESTS AT THIS TIME.
--- NOTE | 2022-01-23 19:04 | NUR ---
PATIENT UP TO BSC AND BACK TO BED, HEAVY 2PA PIVOT. JOHNNY CARE DONE. CALL LIGHT IN REACH. BED ALARM ON. NO FURTHER NEEDS AT THIS TIME.
--- NOTE | 2022-01-23 19:25 | NUR ---
SHIFT REPORT FROM ALLYSON POLO, PT HAS BEEN LABILE, INTERMITTEN CONFUSION/DISORIENTATION, SISTER HAS BEEN UPDATED TODAY BY ALLYSON POLO. PT WILL NEED PENITENTIARY REHAB, COMPLICATED DISCHARGE PLAN, PT LIVES HOME ALONE WITH NON REWRITE EDITOR.
--- NOTE | 2022-01-23 21:40 | NUR ---
PT RESTING IN BED EYES CLOSED, PT ALERT TO NAME FOR PATIENT CARE. SHE IS PLEASANT TALKED WITH HER ABOUT HER SLOTH STUFFED ANIMALS IN BED WITH HER. PT GIVEN EDUCATION ON MEDICATION PASS, SHE VERBALIZED MEDICATIONS SHE TAKES CORRECT. PT HAS NOT VOIDED, WILL MONITOR FOR NEED. NO OTHER REQUESTS OR CONCERNS FROM PATIENT
--- NOTE | 2022-01-24 00:41 | NUR ---
PT RESTING QUIETLY IN BED EYES CLOSED, RR 16 BPM, NO DISTRESS NOTED. CALL LIGHT IN REACH, BED ALARM ON FOR PT SAFETY.
--- NOTE | 2022-01-24 03:49 | NUR ---
PT RESTING IN BED EYES CLOSED RR REGULAR AT 18 BPM, CALL LIGHT IN REACH, BED ALARM ON FOR PT SAFETY. SHE HAS BEEN REPOSTIONING SELF IN BED FROM SIDE TO SIDE OVER SHIFT. NO DISTRESS NOTED AT THIS TIME
--- NOTE | 2022-01-24 05:26 | NUR ---
ROUNDING ON PT, PT UP TO BEDSIDE COMMODE, VERY HEAVY 2P ASSIST. PT VERY UNSTEADY ON HER FEET. PT HAD LARGE FORMED BM. LARGE INCONT IN DEPENDS X2. PT BACK TO BED REPOSITIONED, TOLERATED ACTIVITY WELL. CALL LIGHT IN REACH. BED ALARM ON FOR PT SAFETY. PT COOPERATIVE WITH ALL CARE. NOTED TO BE ABLE TO ANSWER ORIENTATION QUESTIONS APPROPRIATELY. AM ASSESSMENT COMPLETE, PT HAS NO FURTHER REQUESTS OR CONCERNS AT THIS TIME. SHE THANKED STAFF VERY MUCH FOR ASSISTING HER TO THE COMMODE AND BACK TO BED.
--- NOTE | 2022-01-24 06:04 | NUR ---
UNREMARKABLE SHIFT, NO NEW DEFICITS, PT SLEPT WELL OVER SHIFT, COOPERATIVE WITH CARE.
--- NOTE | 2022-01-24 07:52 | NUR ---
Reviewed chart notes. Spoke with pt and she would be agreeable to returning to [facility]. Called and spoke with Abi. She states pt has 48 days remaining on her medicare. She also states they encouraged pt to stay or to move into and [facility], but pt wanted to try and return to her home with a cg. She states they would be willing to accept this pt back. She asks I fax a chart and they can review this morning in their meeting. Face sheet, covid test, H&P, progress notes, Imaging, med list, PT note, and note showing pt was vaccinated for covid 01/31/21 and 03/02/21 faxed to Abi in the business office at [facility].
--- NOTE | 2022-01-24 08:30 | NUR ---
Received call from pts sister Alondra. She would like to complete a POA and have an update about her sister. Spoke with pt and she states it is ok to release info, but she will need to consider if she will make her sister her POA. 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
--- NOTE | 2022-01-24 09:56 | NUR ---
RN IN ROOM TO ASSESS PT AND ADMINISTER SCHEDULED MEDS. PT REORIENTED TO PLACE AND TIME. PT ASSISTED TO CHAIR AFTER PROVIDING JOHNNY CARE. BED LINENS AND GOWN CHANGED. VS STABLE - ASSESSMENT WNL. PT IN ROOM TO WORK WITH PT.
--- NOTE | 2022-01-24 10:30 | NUR ---
Received notification from Abi at [facility]. Pt discharged less than 30 days ago from their facility. Pt could return today if she is medically cleared. Notified Dr. Mon and I will call the van to check if they can transport. Per Dr. Mon pt is medically ready for dc. Called the van, they do not have any transport available out of town today. They did agree to 0830 transport tomorrow AM. Will print orders for Dr. Mon.
--- NOTE | 2022-01-24 11:21 | NUR ---
Spoke with pt and updated, she may return to [facility] tomorrow by rinku jesus. Pt states understanding and cont. to not want to complete a POA. Discussed with pt this is not something she is required to do. Pt does states concern as she needs to pay her bills. She will call her home cg and ask her to help her to pay her rent, phone, and TV bill.
--- NOTE | 2022-01-24 12:23 | NUR ---
PT IN CHAIR EATING LUNCH. USE OF HAND AND FINGER STRENGTH ENOUGH TO USE SILVERWARE APPROPRIATLY. RIGHT SIDE DEPTH PERCEPTION DEFICIT - STATUS POST CVA. PT DENIES PAIN, ORIENTED TO SELF AND PLACE THIS AFTERNOON. STATES SHE WAS SUCESSFUL IN WORKING WITH PT THIS MORNING. DENIES FURTHER NEEDS AT THIS TIME.
--- NOTE | 2022-01-24 13:53 | NUR ---
PT. UP IN CHAIR TALKING ON THE PHONE, VITALS DONE AND GAVE HER A WARM WASHCLOTH TO CLEAN HER HANDS. JULIAN IN ROOM WITH STUDENT NURSE TO WALK HER TO THE BATHROOM.
--- NOTE | 2022-01-24 14:30 | NUR ---
TRIED TO VISIT PT-BUSY ON PHONE. WILL CHECK BACK
--- NOTE | 2022-01-24 16:28 | NUR ---
PT ASLEEP IN BED WITH HOB ELEVATED. RR EVEN AND UNLABORED, CALL LIGHT IN REACH.
--- NOTE | 2022-01-24 17:14 | NUR ---
MED REC COMPLETE
--- NOTE | 2022-01-24 17:44 | NUR ---
RN IN ROOM TO ASSESS PT AND ADMINISTER SCHEDULED MEDICATIONS. PT ASLEEP IN BED UPON ENTERING BUT WAKES EASILY TO NAME. PT PIVOT TRANSFERED TO BED SIDE COMMODE TO VOID. CLEAN ATTENDS PUT ON. 1 PERSON PIVOT TRANSFER TO CHAIR FOR DINNER. PT DENIES PAIN. EATING DINNER WITHOUT DIFFICULTY. CALL LIGHT IN REACH.
--- NOTE | 2022-01-24 18:21 | NUR ---
RN IN ROOM TO ROUND ON PT - FINISHED DINER AT 75%. DENIES PAIN. REQUESTS TO WATCH TV FROM CHAIR. WASH CLOTH PROVIDED TO WASH HANDS. CALL LIGHT IN REACH.
--- NOTE | 2022-01-24 19:37 | NUR ---
SHIFT REPORT FROM ASTER Del Angel RN AND ALVIN POLO, PT HAS HAD A GOOD SHIFT, SHE HAS BEEN COOPERATIVE WITH CARE, CONFUSED/DISORIENTED INTERMITTENLY. PT TRANSFERS HAS IMPROVED SINCE THIS AM., SHE HAS BEEN UP IN RECLINER ALL AFTERNOON. SHE IS UP IN RECLINER AT THIS TIME, BEING ASSISTED BACK TO BED TWO PERSON WITH DAYSHIFT NURSES AND [employer] M[employer] OPERATOR CHARGE. NOTED ON ASSESSMENT TODAY THAT PT HAS VISUAL FIELD IMPAIRMENTS ASSESSED BY CHRIS, IT WAS PREVIOUSLY NOTED THAT SHE HAD SIGNIFICANT DEPTH PERCEPTION IMPAIRMENT.
[2022-01-24] MEDS ORDERED: ASPIRIN81 MG PO (19:46)
[2022-01-24] MEDS ORDERED: ATORVASTATIN CA10 MG PO (19:46)
[2022-01-24] MEDS ORDERED: GABAPENTIN300 MG PO (19:47)
[2022-01-24] MEDS ORDERED: DULOXETINE HCL60 MG PO (19:47)
[2022-01-24] MEDS ORDERED: LEVETIRACETAM500 MG PO (19:47)
[2022-01-24] MEDS ORDERED: MELATONIN3 MG PO (19:48)
--- NOTE | 2022-01-24 21:01 | NUR ---
ROUNDING ON PT, V/S STABLE, ASSESSMENT COMPLETE, NO NEW DEFICITS, PT IS MORE ALERT THIS SHIFT, MORE ORIENTED THIS SHIFT THAN COMPARED TO LAST INDUSTRIAL RECRUITER, PT WAS ABLE TO RECOUNT THE EVENTS OF HER HOSPITAL STAY, HER DATE, HER IMPROVEMENT OF SIGHT AND STRENGTH. SHE IS IN RELAXED POSITION RESTING IN BED WATCHING TV. WHEN FINISHED WITH PT CARE, SHE ASKED IF THIS RN WOULD DIAL HER SISTER FOR HER. NUMBER IS AT BEDSIDE, PT WAS ABLE TO RECALL PHONE NUMBER FROM [facility] CORRECTLY, SHE WAS NOT ABLE TO DO THIS LAST SHIFT. PT HAS NO OTHER REQUESTS OR CONCERNS AT THIS TIME. EDUCATION PROVIDED FOR MEDICATIONS PASS.
--- NOTE | 2022-01-24 23:00 | NUR ---
PT RESTIN GIN BED EYES CLOSED RR EVEN AT 18 BPM, NO DISTRESS NOTED. CALL LIGHT IN REACH, BED ALARM ON FOR PT SAFETY.
--- NOTE | 2022-01-25 02:14 | NUR ---
ROUNDING..PT RESTING IN BED NOTED TURNING HER HEAD, OPENED PT DOOR TO ASK IF SHE NEEDED ANYTHING, PT SAID "NO", NO CONCERNS OR REQUESTS SHE SAID "I LIKE MY NEW ROOM" THIS RN SAID "OH GOOD, I AM SO GLAD, THANK YOU SO MUCH FOR ALLOWING UP TO MOVE YOU" ...PT WAS MOVED FROM ROOM 120 TO ROOM 114 DUE TO NEED FOR CLOSE ROOMS FOR E.R. ADMITS.
--- NOTE | 2022-01-25 04:19 | NUR ---
ROUNDING..PT RESTING IN BED ALERT TO THIS RN AT BEDSIDE, ASSESSMENT COMPLETE, PT HAS NO OTHER CONCERNS OR REQUESTS. SHE SAID "THANK YOU FOR CHECKING ON ME"
--- NOTE | 2022-01-25 04:45 | NUR ---
PT HAS SLEPT WELL OVER SHIFT, PT CONTINUES TO SHOW IMPROVEMENTS IN MENTATION SHE HAS BEEN ABLE TO RECALL HER BIRTHDAY, SISTER'S PHONE NUMBER AND EVENTS SURROUNDING ADMIT CLEARLY AND CORRECTLY, SHE IS TRANSFERING THIS SHIFT WITH IMPROVED STABILITY TO BEDSIDE COMMODE. V/S STABLE, NO NEW DEFICITS, IMPROVED ESTABLISHED DEFICITS. PT VERBALIZED "I FEEL LIKE I CAN THINK MORE CLEARLY TODAY"
--- NOTE | 2022-01-25 07:30 | NUR ---
Orders faxed to [facility]. Pt scheduled for transport at 0830 per van. Called and left a message for her CM at [facility] pt is returning to [facility]. Called and spoke with her paid cg Misa. She agrees to take clothing to pt this week and states she has spoken with pt's sister and they are paying her bills. She also states she is going to step back as her cg as pt has began needing more and more cg and she cannot provide so many hours and pt also does not pay her for extra hours. She states pt has also become very suspicious and has began accusing her of things. 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
--- NOTE | 2022-01-25 07:50 | NUR ---
In and spoke with Ashley. Reminded her she is going back to [facility]. She remains slightly confused and has forgotten she is in [place]. She is in agreement to return and I again updated she will go in the van. 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 I let her know I spoke with Misa and her sister yesterday. She feels she may want to go to an [facility] near her sister when she discharges from SNF. She denies other needs.
--- NOTE | 2022-01-25 07:58 | NUR ---
REPORT RECEIVED FROM NIGHT RN. PT DUE TO BE TRANSFERED TO REHAB FACILITY IN AT 0830. RN IN ROOM TO PREPARE PT FOR TRANSFER. PT ORIENTED THIS MORNING ABLE TO RECALL WHERE AND WHY SHE IS BEING TRANSFERED. DECREASED STRENGTH IN RIGHT LEG WITH PIVOT TRANSFER TO CHAIR. IV DC'D - CATH INTACT.
== END 2022-01-25 08:30 | DRG 66 ==
LOC: ED 19:56 → MS 22:13
PROVIDERS: ADMIT Internal Medicine; ATTEND Internal Medicine
DX: I63.89 Other cerebral infarction (principal); F32.A Depression, unspecified; F41.9 Anxiety disorder, unspecified; Z20.822 Contact with and (suspected) exposure to COVID-19; F03.90 Unspecified dementia, unspecified severity, without behavioral disturbance, psychotic disturbance, mood disturbance, and anxiety; R41.3 Other amnesia; E11.40 Type 2 diabetes mellitus with diabetic neuropathy, unspecified; W18.30XA Fall on same level, unspecified, initial encounter; Z79.899 Other long term (current) drug therapy; Z98.890 Other specified postprocedural states; Z79.82 Long term (current) use of aspirin; E78.5 Hyperlipidemia, unspecified; Z79.4 Long term (current) use of insulin
CPT/HCPCS: 36415; 70450; 73560; 80048; 81001; 85025; 92610; 97110; 97161; 97165; 97530; 99285-25; A9270; C9803; J1650; J1815; U0003